=== PATIENT | female | born 1960 | race Caucasian/White ===

== ENCOUNTER 2022-02-28 09:37 | Emergency (ER) | payer SELFPAY ==
[2022-02-28 10:20] LABS: #Eosinphils 0.2 thou/uL (0.0-0.7); #Lymphocytes 1.7 thou/uL (1.20-3.40); #Monocytes 0.3 thou/uL (0.11-0.59); #Neutrophils 2.9 thou/uL (1.40-6.50); %Basophils 0.4 % (0.0-1.0); %Eosinophils 4.3 % (0.0-10.0); %Lymphocytes 32.3 % (21.0-51.0); %Monocytes 6.6 % (0.0-10.0); %Neutrophils 56.4 % (42.0-75.0); Mean Corpuscular HGB CONC 33.1 g/dL (32.0-36.0); Mean Corpuscular Hemoglobin 31.3 pg (27.0-31.0); Mean Corpuscular Volume 94.6 fL (78.0-98.0); Mean Platelet Volume 8.4 fL (7.4-10.4); Platelet Count 202 thou/uL (130-400); RBC Distribution Width 11.9 % (11.5-14.5); Red Blood Cell (RBC) Count 4.46 mill/uL (4.20-5.40); White Blood Cell (WBC) Count 5.2 thou/uL (4.8-10.8)
[2022-02-28 11:02] LABS: ALT (SGPT) 29 U/L (8-55); AST (SGOT) 45 U/L (5-34); Albumin 4.2 g/dL (3.4-4.8); Alkaline Phosphatase 63 U/L (40-110); Anion Gap 16 mmol/L (10-20); BUN (Urea Nitrogen) 21 mg/dL (9.8-20.1); Bilirubin, Total 0.7 mg/dL (0.2-1.2); Calc. Creatinine Clearance 0 mL/min (70-130); Calcium 10.3 mg/dL (7.8-10.44); Carbon Dioxide 26 mmol/L (23-31); Chloride 103 mmol/L (98-107); Estimated GFR 31; Globulin 3.2 g/dL (2.4-3.5); Glucose 117 mg/dL (80-115); Lipase 52 U/L (8-78); Potassium 4.5 mmol/L (3.5-5.1); Protein, Total 7.4 g/dL (5.8-8.1); Sodium 140 mmol/L (136-145)
[2022-02-28] MEDS ORDERED: Lorazepam 2 MG/ML VIAL ONE (13:41)
[2022-02-28] MEDS ORDERED: Ketorolac Tromethamine 30 MG/ML VIAL ONE (13:41)
[2022-02-28] MEDS ORDERED: Fentanyl 100 MCG/2 ML VIAL ONE (13:41)
== END 2022-02-28 14:40 | disposition home or self-care (01) ==
LOC: ERS 09:37
DX: G90.59 Complex regional pain syndrome I of other specified site (principal); E11.22 Type 2 diabetes mellitus with diabetic chronic kidney disease; N18.30 Chronic kidney disease, stage 3 unspecified; Z86.73 Personal history of transient ischemic attack (TIA), and cerebral infarction without residual deficits; Z79.899 Other long term (current) drug therapy
CPT/HCPCS: 36415; 71045; 80053; 83690; 83880; 84484; 85025; 85379; 93005; 94760; 96374; 96375; J1885; J2060; J3010

== ENCOUNTER 2022-12-13 08:10 | Day surgery (SDC) | payer OTHER ==
[2022-12-12 12:48] VITALS: BMI 33.6
[2022-12-13] MEDS ORDERED: PROPOFOL 200 MG/20 ML VIAL ONE (11:02)
== END 2022-12-13 12:31 | disposition home or self-care (01) ==
LOC: SDC 08:10
PROVIDERS: ATTEND Internal Medicine Gastroenterology
PROC: 0DJD8ZZ Inspection of Lower Intestinal Tract, Via Natural or Artificial Opening Endoscopic (ICD-10-PCS; principal; 2022-12-13)
DX: Z12.11 Encounter for screening for malignant neoplasm of colon (principal); K57.30 Diverticulosis of large intestine without perforation or abscess without bleeding; K64.8 Other hemorrhoids; E11.9 Type 2 diabetes mellitus without complications; E03.9 Hypothyroidism, unspecified; E78.5 Hyperlipidemia, unspecified; I25.10 Atherosclerotic heart disease of native coronary artery without angina pectoris; Z86.73 Personal history of transient ischemic attack (TIA), and cerebral infarction without residual deficits; Z79.890 Hormone replacement therapy; Z79.899 Other long term (current) drug therapy; Z96.82 Presence of neurostimulator
CPT/HCPCS: J2704

== ENCOUNTER 2024-02-04 13:53 | Outpatient (CLI) | payer OTHER | END 2024-02-04 13:54 | disposition home or self-care (01) | LOC: BICMAMMO 13:53 | PROVIDERS: ATTEND Family Medicine | DX: Z12.31 Encounter for screening mammogram for malignant neoplasm of breast (principal) | CPT/HCPCS: 77063; 77067 ==

== ENCOUNTER 2024-08-30 14:07 | Outpatient (CLI) | payer OTHER ==
[2024-08-30 16:03] LABS: #Basophils 0.03 10x3/uL (0.0-0.2); %Basophils 0.5 % (0.0-1.0); %Lymphocytes 25.9 % (21.0-51.0); %Monocytes 6.6 % (0.0-10.0); %Neutrophils 64.2 % (42.0-75.0); Hematocrit 32.2 % (36.0-47.0); Hemoglobin 10.6 g/dL (12.0-16.0); Mean Corpuscular HGB CONC 32.9 g/dL (32.0-36.0); Mean Corpuscular Hemoglobin 31.3 pg (27.0-31.0); Mean Platelet Volume 10.4 fL (7.4-10.4); Platelet Count 210 10x3/uL (130-400); RBC Distribution Width 12.5 % (11.5-14.5); Red Blood Cell (RBC) Count 3.39 mill/uL (4.20-5.40)
[2024-08-30 16:14] LABS: Bilirubin Negative (Negative); Blood, Urine 3+ (Negative); Clarity Extra Turbid (Clear); Glucose, Urine (Dipstick) Normal (Negative); Ketone, Urine Negative (Negative); Leukocyte 500 Leu/uL (Negative); Nitrite Negative (Negative); Protein, Urine (Dipstick) 200 mg/dL (Neg-Trace); Specific Gravity, Urine 1.016 (1.002-1.036); Urobilinogen Normal mg/dL (Less than 2)
[2024-08-30 16:21] LABS: Anion Gap 15 mmol/L (10-20); BUN (Urea Nitrogen) 39 mg/dL (9.8-20.1); Calc. Creatinine Clearance 0 mL/min (70-130); Calcium 9.5 mg/dL (7.8-10.44); Carbon Dioxide 21 mmol/L (23-31); Chloride 108 mmol/L (98-107); Estimated GFR 13; Glucose 112 mg/dL (80-115); Potassium 4.7 mmol/L (3.5-5.1); Sodium 139 mmol/L (136-145)
[2024-08-30 16:24] LABS: ALT (SGPT) 24 U/L (8-55); AST (SGOT) 26 U/L (5-34); Albumin 4.1 g/dL (3.4-4.8); Alkaline Phosphatase 63 U/L (40-110); Anion Gap 14 mmol/L (10-20); BUN (Urea Nitrogen) 38 mg/dL (9.8-20.1); BUN/Creatinine Ratio 10.16; Bilirubin, Direct 0.2 mg/dL (0.1-0.3); Bilirubin, Total 0.5 mg/dL (0.2-1.2); Calc. Creatinine Clearance 0 mL/min (70-130); Calcium 9.5 mg/dL (7.8-10.44); Carbon Dioxide 21 mmol/L (23-31); Cardiac Risk 4.3 (Less than 4.5); Chloride 109 mmol/L (98-107); Cholesterol 167 mg/dl (< 200 Desired); Estimated GFR 13; Glucose 112 mg/dL (80-115); HDL Cholesterol 39 mg/dL (>60 Neg Risk); LDL Cholesterol, Calculated 84 mg/dL; Phosphorus 2.8 mg/dL (2.3-4.7); Potassium 4.9 mmol/L (3.5-5.1); Protein, Total 8.1 g/dL (5.8-8.1); Sodium 139 mmol/L (136-145); Triglycerides 220 mg/dL (Less than 150); Uric Acid 7.5 mg/dL (2.6-6.0)
[2024-08-30 16:43] LABS: Thyroid Stimulating Hormone 2.7553 uIU/mL (0.35-4.94); Vitamin D, 25 Hydroxy 66.6 ng/ml (> 30.0)
[2024-08-30 17:11] LABS: Creatinine, Urine 247.29 mg/dL (47-110)
== END 2024-08-30 14:08 | disposition home or self-care (01) ==
LOC: LABBT 14:07
PROVIDERS: ATTEND Urology
DX: Z01.818 Encounter for other preprocedural examination (principal); N20.0 Calculus of kidney
CPT/HCPCS: 80048; 80061; 80076; 81003; 82306; 82570; 83970; 84156; 84443; 84550; 85025; 87086; 93005; 93010

== ENCOUNTER 2024-09-03 05:33 | Day surgery (SDC) | payer OTHER ==
[2024-08-30 14:57] VITALS: BMI 32.9
[2024-09-03] MEDS ORDERED: Piperacillin/Tazobactam 3.375 GM VIAL ONE (06:17)
[2024-09-03] MEDS ORDERED: Lidocaine 1% MPF 2 ML VIAL ONE (06:17)
[2024-09-03] MEDS ORDERED: Sodium Chloride 0.9% 100 ML ONE (06:17)
[2024-09-03] MEDS ORDERED: Iopamidol 30 ML ONE (06:25)
[2024-09-03] MEDS ORDERED: Glycopyrrolate 0.2 MG/ML 5 ML SYRINGE ONE (06:40)
[2024-09-03] MEDS ORDERED: PHENYLEPHRINE-NS 100 MCG/ML 10 ML SYRINGE ONE (06:40)
[2024-09-03] MEDS ORDERED: Lidocaine 1% PF 5 ML VIAL ONE (06:40)
[2024-09-03] MEDS ORDERED: Ondansetron PF 4 MG/2 ML Vial ONE (06:40)
[2024-09-03] MEDS ORDERED: fentaNYL PF 100 MCG/2 ML SYRINGE ONE (06:40)
[2024-09-03] MEDS ORDERED: Midazolam HCl 2 mg/2 ml Vial ONE (06:40)
[2024-09-03] MEDS ORDERED: PROPOFOL 20 ML ONE (06:40)
[2024-09-03] MEDS ORDERED: Rocuronium Bromide 10 MG/ML (10ML VIAL) ONE (06:40)
[2024-09-03] MEDS ORDERED: Dexamethasone 20 MG/5 ML VIAL ONE (06:40)
[2024-09-03] MEDS ORDERED: SUGAMMADEX SODIUM 200 MG/2 ML VIAL ONE (08:06)
== END 2024-09-03 09:43 | disposition home or self-care (01) ==
LOC: SDC 05:33
PROVIDERS: ATTEND Urology
PROC: 0TP98DZ Removal of Intraluminal Device from Ureter, Via Natural or Artificial Opening Endoscopic (ICD-10-PCS; principal; 2024-09-03)
PROC: 0TC08ZZ Extirpation of Matter from Right Kidney, Via Natural or Artificial Opening Endoscopic (ICD-10-PCS; principal; 2024-09-03)
PROC: 0T768DZ Dilation of Right Ureter with Intraluminal Device, Via Natural or Artificial Opening Endoscopic (ICD-10-PCS; principal; 2024-09-03)
DX: N20.0 Calculus of kidney (principal); E78.5 Hyperlipidemia, unspecified; E03.9 Hypothyroidism, unspecified; E11.22 Type 2 diabetes mellitus with diabetic chronic kidney disease; N18.9 Chronic kidney disease, unspecified; I25.2 Old myocardial infarction; Z86.73 Personal history of transient ischemic attack (TIA), and cerebral infarction without residual deficits; Z87.59 Personal history of other complications of pregnancy, childbirth and the puerperium; Z79.890 Hormone replacement therapy; Z79.4 Long term (current) use of insulin; Z79.899 Other long term (current) drug therapy
CPT/HCPCS: 74420; C1713; C1747; C2617; J1100; J2250; J2405; J2543; J2704; Q9967

== ENCOUNTER 2025-05-26 10:48 | Outpatient (CLI) | payer OTHER | END 2025-05-26 10:49 | disposition home or self-care (01) | LOC: BICMAMMO 10:48 | PROVIDERS: ATTEND Family Medicine | DX: Z12.31 Encounter for screening mammogram for malignant neoplasm of breast (principal); Z78.0 Asymptomatic menopausal state; M81.0 Age-related osteoporosis without current pathological fracture | CPT/HCPCS: 77063; 77067; 77080 ==